=== PATIENT | female | born 1960 | race Caucasian/White ===

== ENCOUNTER 2017-08-24 22:39 | Inpatient (IN) | payer OTHER ==
[2017-08-24 22:41] VITALS: BMI 43.0
[2017-08-24] MEDS ORDERED: Sodium Chloride 0.9% 1,000 ML IV ONE (23:04)
[2017-08-24 23:17] LABS: EOS % 0.1 % (0.0-4.0); LYMPH # 0.3 K/uL (1.0-4.3); MEAN PLATELET VOLUME 8.5 fL (7.2-11.7); MONO # 0.1 K/uL (0.0-0.8)
[2017-08-24] MEDS ORDERED: Sodium Chloride 0.9% 1,000 ML ONE (23:17)
[2017-08-24 23:21] LABS: BASO % 0.4 % (0.0-2.0); HEMOGLOBIN 12.9 g/dL (11.0-16.0); LYMPH % 3.8 % (20.0-40.0); MEAN CELL VOLUME 84.6 fL (81.0-99.0); MEAN CORPUSCULAR HEMOGLOBIN 28.2 pg (27.0-31.0); MEAN CORPUSCULAR HGB CONC 33.3 g/dL (33.0-37.0); MONO % 1.7 % (0.0-10.0); NEUT # 8.1 K/uL (1.8-7.0); NRBC % 0.1 % (0.0-2.0); PLATELET COUNT 226 K/uL (130-400); RBC 4.59 Mil/uL (3.80-5.20); RED CELL DISTRIBUTION WIDTH 13.7 % (11.5-14.5); WHITE BLOOD COUNT 8.6 K/uL (4.8-10.8)
[2017-08-24 23:37] LABS: ALB/GLOB RATIO 1.2 (1.0-2.1); ALBUMIN 4.4 g/dL (3.5-5.0); ALT/SGPT 173 U/L (9-52); AST/SGOT 341 U/L (14-36); BLOOD UREA NITROGEN 15 mg/dL (7-17); CALCIUM 9.5 mg/dl (8.6-10.4); GFR AFRICAN-AMERICAN > 60; GFR NON-AFRICAN AMERICAN > 60
[2017-08-24 23:38] LABS: BANDS 6 % (0-2); LYMPHOCYTE 8 % (20-40); MONOCYTE 2 % (0-10); NEUTROPHIL 84 % (50-75); TOTAL CELLS COUNTED 100
[2017-08-24 23:39] LABS: PLATELET ESTIMATE NORMAL (NORMAL)
[2017-08-24 23:52] LABS: SQUAMOUS EPITHIAL 1 /hpf (0-5); URINE BACTERIA FEW (<OCC); URINE BILIRUBIN NEGATIVE (NEGATIVE); URINE BLOOD 1+ (NEGATIVE); URINE CLARITY Clear (Clear); URINE COLOR Yellow (YELLOW); URINE GLUCOSE (UA) NORMAL (Normal); URINE LEUKOCYTE ESTERASE NEG Leu/uL (Negative); URINE PROTEIN NEGATIVE (NEGATIVE)
[2017-08-25 00:08] LABS: BARBITURATES, UR NEGATIVE (NEGATIVE); BENZODIAZEPINES, UR NEGATIVE (NEGATIVE); OPIATES, UR NEGATIVE (NEGATIVE); PHENCYCLIDINE, UR NEGATIVE (NEGATIVE)
[2017-08-25 00:20] LABS: LIPASE 15964 U/L (23-300)
[2017-08-25] MEDS ORDERED: Iodixanol 320 MG/ML 100 ML BOTTLE IV ONE (00:35)
--- NOTE | 2017-08-25 01:08 | C.PDOC ---
History Of Present Illness 57 year old female presents to the ED for evaluation of sudden onset epigastric abdominal pain which around 1800 today. Patient also reports brief episode of nausea and vomiting. She states symptoms are not related to a meal and denies history of similar symptoms. Patient denies fever, chills. Time Seen by Provider: 08/24/17 23:01 Chief Complaint (Nursing): Abdominal Pain History Per: Patient History/Exam Limitations: no limitations Onset/Duration Of Symptoms: Hrs, Sudden Onset Current Symptoms Are (Timing): Still Present Location Of Pain/Discomfort: Epigastric Quality Of Discomfort: "Pain" Associated Symptoms: Nausea, Vomiting. denies: Fever, Chills Additional History Per: Patient Past Medical History Reviewed: Historical Data, Nursing Documentation, Vital Signs Vital Signs: Last Vital Signs Temp 98.9 F 08/24/17 23:21 Pulse 97 H 08/24/17 22:41 Resp 20 08/24/17 22:41 BP 145/68 08/24/17 22:41 Pulse Ox 98 08/25/17 01:57 - Medical History PMH: No Chronic Diseases Surgical History: No Surg Hx Family History: States: Unknown Family Hx - Social History Hx Alcohol Use: No Hx Substance Use: No - Immunization History Hx Tetanus Toxoid Vaccination: Yes Hx Influenza Vaccination: No Hx Pneumococcal Vaccination: No Review Of Systems Constitutional: Negative for: Fever, Chills Gastrointestinal: Positive for: Nausea, Vomiting, Abdominal Pain (epigastric ) Physical Exam - Physical Exam Appears: Non-toxic, No Acute Distress, Other (morbidly obese ) Skin: Normal Color, Warm, Dry Head: Atraumatic, Normacephalic Eye(s): bilateral: Normal Inspection Oral Mucosa: Moist Neck: Supple Chest: Symmetrical, No Deformity, No Tenderness Cardiovascular: Rhythm Regular, No Murmur Respiratory: Normal Breath Sounds, No Rales, No Rhonchi, No Wheezing Gastrointestinal/Abdominal: Soft, Tenderness (epigastric ), No Guarding, No Rebound, No Other (Marie's sign or McBurney's point tenderness ) Extremity: Normal ROM, Capillary Refill (less than 2 seconds ) Neurological/Psych: Oriented x3, Normal Speech, Normal Cognition ED Course And Treatment - Laboratory Results Result Diagrams: 08/24/17 23:14 08/24/17 23:14 Lab Interpretation: Abnormal (lipase 16,000 H, tox neg) ECG: Interpreted By Me ECG Rhythm: Sinus Rhythm ECG Interpretation: Normal Rate From EC O2 Sat by Pulse Oximetry: 98 (on RA) Pulse Ox Interpretation: Normal - Radiology CXR: Interpreted by Me CXR Interpretation: Yes: No Acute Disease - Other Rad abd x 2 X-Ray: Interpreted by Me (+FOS, + surg clips c/w gastric surgery) Progress Note: Bloodwork, urinalysis, CT A/P, Abdomen Flat plate, Obstructive Series Abdomen, EKG ordered and reviewed. Protonix IVP, Toradol IVP and IV Fluids administered. Reevaluation Time: 01:56 Reassessment Condition: Improved - Physician Consult Information Outcome Of Conversation: 0200; d/w Dr. Holloway- PMD- ok to admit. Medical Decision Making Medical Decision Making: constipation, acute pancreatitis Disposition Doctor Will See Patient In The: Hospital Counseled Patient/Family Regarding: Studies Performed, Diagnosis - Disposition Disposition: HOSPITALIZED Disposition Time: 01:57 Condition: GOOD Forms: [facility] ([place]) - Clinical Impression Clinical Impression: Acute pancreatitis - Scribe Statement The provider has reviewed the documentation as recorded by the Scribe (Grisel Nuno) Provider Attestation: All medical record entries made by the Scribe were at my direction and personally dictated by me. I have reviewed the chart and agree that the record accurately reflects my personal performance of the history, physical exam, medical decision making, and the department course for this patient. I have also personally directed, reviewed, and agree with the discharge instructions and disposition.
--- NOTE | 2017-08-25 01:47 | CT ---
EXAM: CT Abdomen and Pelvis With Intravenous Contrast CLINICAL HISTORY: 57 years old, female; Pain; Abdominal pain; Prior surgery; Surgery type: Epigastric TECHNIQUE: Axial computed tomography images of the abdomen and pelvis with intravenous contrast. All CT scans at this facility use one or more dose reduction techniques, viz.: automated exposure control; ma/kV adjustment per patient size (including targeted exams where dose is matched to indication; i.e. head); or iterative reconstruction technique. Coronal and sagittal reformatted images were created and reviewed. CONTRAST: 100 mL of [id number] administered intravenously. COMPARISON: No relevant prior studies available. FINDINGS: Lung bases: Unremarkable. No mass. No consolidation. ABDOMEN: Liver: There is a diffuse decrease in hepatic parenchymal density, consistent with fatty infiltration. Gallbladder and bile ducts: Mildly distended gallbladder. No calcified stones. No ductal dilation. Pancreas: Unremarkable. No mass. No ductal dilation. Spleen: Unremarkable. No splenomegaly. Adrenals: Unremarkable. No mass. Kidneys and ureters: Unremarkable. No solid mass. No hydronephrosis. Stomach and bowel: There has been a gastric stapling and bypass. No obstruction. The colon appears mildly thick walled from the distal transverse colon to the descending colon probably secondary to nondistention. Mild colitis is not excluded. PELVIS: Appendix: No findings to suggest acute appendicitis. Normal appendix. Bladder: Unremarkable. No mass. Reproductive: Unremarkable as visualized. ABDOMEN and PELVIS: Intraperitoneal space: Unremarkable. No free air. No significant fluid collection. Bones/joints: No acute fracture. No dislocation. Soft tissues: Unremarkable. Vasculature: There are numerous benign phleboliths in the pelvis. No abdominal aortic aneurysm. Lymph nodes: Unremarkable. No enlarged lymph nodes. IMPRESSION: Mildly distended gallbladder. If clinically warranted, right upper quadrant ultrasound could be obtained. Mildly thickwalled distal transverse and descending colon could be secondary to nondistention. Mild colitis not excluded. Clinical correlation recommended. Gastric bypass. Fatty liver. The
[2017-08-25] MEDS ORDERED: Sodium Chloride 0.9% 1,000 ML IV ONE (01:58)
[2017-08-25] MEDS ORDERED: Sodium Chloride 0.9% 1,000 ML ONE (02:55)
[2017-08-25] MEDS: Dextrose 5%/0.45% NS 1,000 ML IV SCH ×4 (07:50→20:05)
[2017-08-25] MEDS: Enoxaparin 40 mg Syringe SC SCH (09:01)
[2017-08-25 11:53] LABS: BASO % 0.3 % (0.0-2.0); EOS % 0.3 % (0.0-4.0); LYMPH # 0.6 K/uL (1.0-4.3); LYMPH % 4.6 % (20.0-40.0); MEAN CELL VOLUME 84.7 fL (81.0-99.0); MEAN CORPUSCULAR HEMOGLOBIN 28.3 pg (27.0-31.0); MEAN CORPUSCULAR HGB CONC 33.4 g/dL (33.0-37.0); MEAN PLATELET VOLUME 8.6 fL (7.2-11.7); MONO # 0.9 K/uL (0.0-0.8); MONO % 6.9 % (0.0-10.0); NEUT # 11.4 K/uL (1.8-7.0); NEUT % 87.9 % (50.0-75.0); PLATELET COUNT 178 K/uL (130-400); RBC 3.84 Mil/uL (3.80-5.20); RED CELL DISTRIBUTION WIDTH 13.4 % (11.5-14.5); WHITE BLOOD COUNT 12.9 K/uL (4.8-10.8)
[2017-08-25 12:05] LABS: HEMOGLOBIN 10.9 g/dL (11.0-16.0)
[2017-08-25 12:19] LABS: ALB/GLOB RATIO 1.1 (1.0-2.1); ALBUMIN 3.3 g/dL (3.5-5.0); ALT/SGPT 307 U/L (9-52); AMYLASE 282 U/L (30-110); AST/SGOT 345 U/L (14-36); BLOOD UREA NITROGEN 12 mg/dL (7-17); CALCIUM 8.1 mg/dl (8.6-10.4); GFR AFRICAN-AMERICAN > 60; GFR NON-AFRICAN AMERICAN > 60; HDL CHOLESTEROL 48 mg/dL (30-70); LIPASE 1637 U/L (23-300)
[2017-08-25 12:24] LABS: LDL CHOLESTEROL 67 mg/dL (0-129)
[2017-08-25 12:35] LABS: BANDS 6 % (0-2); EOSINOPHIL 1 % (0-4); LYMPHOCYTE 7 % (20-40); MONOCYTE 4 % (0-10); NEUTROPHIL 82 % (50-75); PLATELET ESTIMATE NORMAL (NORMAL); TOTAL CELLS COUNTED 100
[2017-08-25] MEDS ORDERED: Potassium Ch 20mEq in D5W 1,000 ML IV SCH (13:00)
--- NOTE | 2017-08-25 13:02 | PN ---
DATE: 08/25/2017 LOCATION: 650, bed A. SUBJECTIVE: This is a 57-year-old female seen initially on 08/24/2017 where she had consultation as requested by the admitting medical staff, re-examined again early today due to recurrent abdominal pain, generalized weakness and malaise, was found to have increased serum lipase and amylase level. The most recent lab results done yesterday showed lipase of 15,964 with elevated liver function tests. CAT scan of the abdomen and pelvis report is seen. The patient still has persistent abdominal pain with nausea but not reported vomiting this morning. No reported chest pain, palpitation, or evidence of active bleeding. The entire chart is reviewed including but not limited to the most recent lab and radiology study results, current and previous medication list, current and previous medical events. Case discussed with the staff at length. PHYSICAL EXAMINATION: GENERAL: A 57-year-old female complaining of severe midepigastric and midabdominal pain. VITAL SIGNS: Afebrile with pulse of 92, respiratory rate 20 to 22, blood pressure 130/76. HEENT: Showed pale, dry oral mucous membranes. Mildly icteric sclerae. LUNGS: A few scattered mild crepitation. Decreased air entry at bases. HEART: Positive S1 and S2 with increased rate. ABDOMEN: Mildly obese with diffuse tenderness, generalized mild distention. No mass or organomegaly. No rebound tenderness or guarding. IMPRESSION: 1. Acute pancreatitis, unclear etiology with limited but abnormal CAT scan of the abdomen and pelvis. 2. Rule out hyperlipidemia-induced pancreatitis, rule out possible periodic pancreatitis. SUGGESTIONS: 1. Continue current management. 2. MRCP. 3. Follow up lipase, amylase level and keep patient n.p.o. until lipase and amylase levels are normal or near normal. Further recommendation to follow. Jose Hoover MD
[2017-08-25] MEDS: POTASSIUM CHLORIDE IV SCH ×2 (14:45→18:02)
[2017-08-25] MEDS: DEXTROSE 5% IV SCH ×2 (14:45→18:02)
[2017-08-25] MEDS: WATER IV SCH ×2 (14:45→18:02)
--- NOTE | 2017-08-25 14:50 | RAD ---
HISTORY: abd pain COMPARISON: No prior. FINDINGS: BOWEL: Mild to moderate constipation. No evidence of small bowel obstruction. BONES: Degenerative changes noted in the spine. OTHER FINDINGS: Multiple surgical clips are seen. IMPRESSION: [id number] constipation.
[2017-08-26] MEDS: Dextrose 5%/0.45% NS 1,000 ML IV SCH ×5 (02:45→22:45)
[2017-08-26] MEDS: Enoxaparin 40 mg Syringe SC SCH (09:01)
[2017-08-26] MEDS ORDERED: Potassium Chloride 20 mEq/15 ml LIQ UD PO ONE (10:00)
--- NOTE | 2017-08-26 10:19 | US ---
HISTORY: ABNORMAL L.F.T. , R/O CBD STONE COMPARISON: None. TECHNIQUE: Sonographic evaluation of the abdomen. FINDINGS: LIVER: Measures 19.8 cm. Increased echogenicity of the liver parenchyma. No mass. No intrahepatic bile duct dilatation. GALLBLADDER: Cholelithiasis are noted. [id number] diffuse nonspecific gallbladder wall thickening. COMMON BILE DUCT: Measures 5 mm. No stones. No dilatation. PANCREAS: Unremarkable as visualized. No mass. No ductal dilatation. RIGHT KIDNEY: Measures 12 x 5.1 x 5.6cm. Normal echogenicity. No calculus, mass, or hydronephrosis. LEFT KIDNEY: Measures 11.5 x 6 x 5.3cm. Normal echogenicity. No calculus, mass, or hydronephrosis. SPLEEN: Normal in size and contour. No mass. AORTA: No aneurysmal dilatation. IVC: Unremarkable. OTHER FINDINGS: None. IMPRESSION: Echogenic heterogeneous liver likely due to hepatic steatosis. Gallstones and mild to moderate gallbladder wall thickening. Possible trace pericholecystic fluid. Correlate clinically for cholecystitis. Normal caliber common bile duct measures 5 millimeter.
[2017-08-26] MEDS: metroNIDAZOLE IV 500 mg/100 ml 500 MG/100 ML BAG IVPB SCH ×2 (10:30→16:17)
--- NOTE | 2017-08-26 12:14 | HP ---
HISTORY OF PRESENT ILLNESS: The patient is admitted to the hospital with a chief complaint of abdominal pain, nausea, and vomiting. PHYSICAL EXAMINATION: GENERAL: The patient is alert, awake, and oriented. VITAL SIGNS: Temperature 98, pulse 90. HEENT: Within normal limits. NECK: Supple. CHEST: Symmetrical. HEART: Regular. ABDOMEN: Soft. EXTREMITIES: No edema. ASSESSMENT AND PLAN: The patient suffers from pancreatitis. The patient to get bed rest, supportive care. Tina Fisher MD
--- NOTE | 2017-08-26 13:24 | PN ---
DATE: 08/26/2017 LOCATION: 650, bed A. SUBJECTIVE: This is a 57-year-old female seen and examined in rounds today. The entire chart is reviewed including but not limited to the most recent lab and radiology study results, current and the previous medication list, current and the previous medical events. Case discussed with the staff at length. The patient still has intermittent period of abdominal pain mainly in the midepigastric and the right upper quadrant area as well as the left lower quadrant area, and official report of the CAT scan of the abdomen and pelvis is seen. The patient still has intermittent period of abdominal pain with mild nausea and dyspepsia of unclear etiology so far. Today's lab results showed a lipase of 102 from original lipase level of 15,964 with increased liver enzymes as per yesterday with total bilirubin of 3.8. . PHYSICAL EXAMINATION: GENERAL: A 57-year-old female, awake, alert and oriented. VITAL SIGNS: Afebrile with jaundice with pulse of 70, respiratory rate 20-22, blood pressure of 156/82. HEENT: Showed dry oral mucoid exudate, pale, with bilateral icteric sclerae. LUNGS: Few scattered crepitation. Decreased air entry at bases. HEART: Positive S1 and S2. ABDOMEN: Soft with generalized tenderness, but mainly in the midepigastric and right upper quadrant area. No mass or organomegaly. No rebound tenderness or guarding. EXTREMITIES: Without significant clubbing, cyanosis or edema. IMPRESSION: 1. Jaundice, to rule out obstructive jaundice. 2. Abnormal liver function tests, most likely secondary to above. 3. Acute pancreatitis, subsiding gradually and biochemically, but not clearly , could be biliary pancreatitis. 4. Anemia, most likely secondary to above versus gastrointestinal blood loss. SUGGESTIONS: 1. Agree with your plan. 2. MRCP. 3. Due to the subsequent increase of liver function test and increased bilirubin level, an ERCP to be scheduled for a.m. if the patient is stable clinically. 4. Continue current management. Jose Hoover MD
[2017-08-27] MEDS: Dextrose 5%/0.45% NS 1,000 ML IV SCH ×5 (00:29→21:12)
[2017-08-27] MEDS: metroNIDAZOLE IV 500 mg/100 ml 500 MG/100 ML BAG IVPB SCH ×3 (00:29→16:16)
[2017-08-27 06:37] LABS: INR 1.2; PROTHROMBIN TIME 13.1 SECONDS (9.7-12.2)
--- NOTE | 2017-08-27 07:57 | PN ---
DATE: 08/26/2017 The patient has been complaining of abdominal pain, MRCP ordered. Tina Fisher MD
[2017-08-27] MEDS: Enoxaparin 40 mg Syringe SC SCH (09:40)
--- NOTE | 2017-08-27 09:56 | CP.PCM.PN ---
Subjective - Date & Time of Evaluation Date of Evaluation: 08/27/17 Time of Evaluation: 09:54 - Subjective Subjective: PGY2 Note for Dr. Fisher; all management as per Dr. Fisher This patient was seen and examined at bedside this AM; denies any abdominal pain or vomiting since being admitted to the hospital and states she feels much better; has not had food since sunday; denies fevers/chills, VANEGAS, CP, SOB, abdominal pain, N/V/D dysuria/freq/urg or lower extremity pain/swelling. Objective - Vital Signs/Intake and Output Vital Signs (last 24 hours): Temp Pulse Resp BP Pulse Ox 98.4 F 60 18 160/82 H 96 08/27/17 07:00 08/27/17 08:56 08/27/17 07:00 08/27/17 08:56 08/27/17 07:00 Intake and Output: 08/27/17 08/27/17 06:59 18:59 Intake Total 1200 Balance 1200 - Medications Medications: Current Medications Enoxaparin Sodium (Lovenox) 40 mg SC DAILY [facility] Last Admin: 08/27/17 09:40 Dose: Not Given Dextrose/Sodium Chloride (Dextrose 5%/0.45% Ns 1000 Ml) 1,000 mls @ 150 mls/hr IV .Q6H40M [facility] Last Admin: 08/27/17 09:03 Dose: 150 mls/hr Metronidazole (Flagyl) 500 mg in 100 mls @ 100 mls/hr IVPB Q8H [facility] PRN Reason: Protocol Last Admin: 08/27/17 09:03 Dose: 100 mls/hr Metoclopramide HCl (Reglan) 5 mg IVP Q8H [facility] Last Admin: 08/27/17 07:00 Dose: 5 mg Pantoprazole Sodium (Protonix Inj) 40 mg IVP DAILY [facility] Last Admin: 08/27/17 09:03 Dose: 40 mg - Labs Labs: 08/25/17 11:45 08/25/17 11:45 PT 13.1 SECONDS (9.7-12.2) H 08/27/17 06:18 INR 1.2 08/27/17 06:18 APTT 33 SECONDS (21-34) 08/27/17 06:18 - Constitutional Appears: Well - Head Exam Head Exam: ATRAUMATIC - Eye Exam Eye Exam: EOMI, PERRL, Scleral icterus Pupil Exam: PERRL - ENT Exam ENT Exam: Mucous Membranes Moist - Neck Exam Neck Exam: Full ROM - Respiratory Exam Respiratory Exam: Clear to Ausculation Bilateral, NORMAL BREATHING PATTERN. absent: Rales, Rhonchi, Wheezes - Cardiovascular Exam Cardiovascular Exam: REGULAR RHYTHM, +S1, +S2 - GI/Abdominal Exam GI & Abdominal Exam: Soft, Normal Bowel Sounds. absent: Tenderness, Organomegaly (morbidly obese abdomen with panus ) - Rectal Exam Rectal Exam: Deferred - Extremities Exam Extremities Exam: Full ROM. absent: Calf Tenderness, Pedal Edema - Back Exam Back Exam: NORMAL INSPECTION. absent: CVA tenderness (L), CVA tenderness (R) - Neurological Exam Neurological Exam: Alert, Awake, Oriented x3 - Psychiatric Exam Psychiatric exam: Normal Affect - Skin Skin Exam: Warm Assessment and Plan - Assessment and Plan (Free Text) Assessment: 57yo F admitted for gallstone pancreatitis Gallstone Pancreatitis; resolving -GI; Dr. Prado; thank you for your help -Surgery: Dr. Hassan; thank you for your help -planend for ERCP today 08/27; NPO past midnight; f/u results -AST/ALT elevated, Lipase elevated; pending hepatitis panel and TSH Hemoglobin A1c -Lipid Panel WNL -NPO, IVF, pain/emetic control -fatty liver on US; inflamed pancreas and thickened gallbadder wall; please refer to full report Hypocalemia -was low on 08/25; f/u 08/27 Ca -will replete as necessary Proph SCD Protonix 2/2 to NPO All management as per Dr. Phillip Buchanan PGY2
[2017-08-27 10:25] LABS: HEPATITIS B SURFACE AG Negative (NEGATIVE)
[2017-08-27 10:31] LABS: HEPATITIS A IGM NEGATIVE (NEGATIVE); HEPATITIS B CORE AB NEGATIVE (NEGATIVE)
[2017-08-27 10:42] LABS: HEPATITIS C ANTIBODY NEGATIVE (NEGATIVE)
[2017-08-27 10:43] LABS: ALB/GLOB RATIO 1.2 (1.0-2.1); ALBUMIN 3.6 g/dL (3.5-5.0); ALT/SGPT 182 U/L (9-52); AST/SGOT 116 U/L (14-36); BLOOD UREA NITROGEN 5 mg/dL (7-17); CALCIUM 8.8 mg/dl (8.6-10.4); GFR AFRICAN-AMERICAN > 60; GFR NON-AFRICAN AMERICAN > 60
[2017-08-27 12:20] LABS: BASO % 0.8 % (0.0-2.0); EOS # 0.2 K/uL (0.0-0.7); EOS % 4.1 % (0.0-4.0); HEMOGLOBIN 11.7 g/dL (11.0-16.0); LYMPH # 0.9 K/uL (1.0-4.3); LYMPH % 19.6 % (20.0-40.0); MEAN CELL VOLUME 85.7 fL (81.0-99.0); MEAN CORPUSCULAR HEMOGLOBIN 28.3 pg (27.0-31.0); MEAN CORPUSCULAR HGB CONC 33.1 g/dL (33.0-37.0); MONO # 0.6 K/uL (0.0-0.8); MONO % 12.7 % (0.0-10.0); NEUT % 62.8 % (50.0-75.0); RBC 4.12 Mil/uL (3.80-5.20); RED CELL DISTRIBUTION WIDTH 13.8 % (11.5-14.5)
[2017-08-27 12:21] LABS: WHITE BLOOD COUNT 4.7 K/uL (4.8-10.8)
[2017-08-27] MEDS ORDERED: Lactated Ringer's 1,000 ML IV ONE ×2 (12:29)
[2017-08-27] MEDS ORDERED: Propofol 10 mg/ml Inj (20 ML) ONE (12:37)
[2017-08-27] MEDS ORDERED: Midazolam 2 MG/2 ML VIAL ONE (12:38)
[2017-08-27] MEDS ORDERED: Potassium Chloride 20 mEq ER Tab PO ONE (14:45)
--- NOTE | 2017-08-27 20:20 | CP.PCM.CON ---
History of Present Illness - History of Present Illness History of Present Illness: Surgery 57 F w PSH of gastric byspass came with epigastric pain N/V. Pain started on Sunday. Pain is sudden and localized. Accompanied with N/V. Pt never had these sx before. Denies fever, diarrhea, CP , SOB, hematemesis, hematochezia, hematuria. PT had gastric bypass at [facility] with Dr. Palma years ago and lost 10 pounds. US showed gallstones, thicken GB wall and cholecystic fluids likely cholecystitis. LFT was elevated. Pt had ERCP today and was unable to visualize papilla. Surgery is consulted to evaluate for gallstone pancreatitis PMH obesity , HTN PSH gastric bypass SS: non smoker, non drinker Review of Systems - Review of Systems Review of Systems: See HPI Past Patient History - Past Social History Smoking Status: Never Smoked - CARDIAC Hx Cardiac Disorders: No - PULMONARY Hx Respiratory Disorders: No - NEUROLOGICAL Hx Neurological Disorder: No - HEENT Hx HEENT Problems: No - RENAL Hx Chronic Kidney Disease: No - ENDOCRINE/METABOLIC Hx Endocrine Disorders: No - HEMATOLOGICAL/ONCOLOGICAL Hx Blood Disorders: No - INTEGUMENTARY Hx Dermatological Problems: No - MUSCULOSKELETAL/RHEUMATOLOGICAL Hx Musculoskeletal Disorders: No Hx Falls: No - GASTROINTESTINAL Hx Gastrointestinal Disorders: No - GENITOURINARY/GYNECOLOGICAL Hx Genitourinary Disorders: No - PSYCHIATRIC Hx Psychophysiologic Disorder: No Hx Substance Use: No - SURGICAL HISTORY Hx Section: Yes (x3) - ANESTHESIA Hx Anesthesia: Yes Hx Anesthesia Reactions: No Meds Allergies/Adverse Reactions: Allergies Allergy/AdvReac Type Severity Reaction Status Date / Time No Known Allergies Allergy Unverified 08/24/17 22:40 - Medications Medications: Current Medications Enoxaparin Sodium (Lovenox) 40 mg SC DAILY [facility] Last Admin: 08/27/17 09:40 Dose: Not Given Dextrose/Sodium Chloride (Dextrose 5%/0.45% Ns 1000 Ml) 1,000 mls @ 150 mls/hr IV .Q6H40M [facility] Last Admin: 08/27/17 12:41 Dose: Not Given Metronidazole (Flagyl) 500 mg in 100 mls @ 100 mls/hr IVPB Q8H [facility] PRN Reason: Protocol Last Admin: 08/27/17 16:16 Dose: 100 mls/hr Metoclopramide HCl (Reglan) 5 mg IVP Q8H [facility] Last Admin: 08/27/17 14:45 Dose: 5 mg Pantoprazole Sodium (Protonix Inj) 40 mg IVP DAILY [facility] Last Admin: 08/27/17 09:03 Dose: 40 mg Sucralfate (Carafate Tab) 1 gm PO TID [facility] Last Admin: 08/27/17 17:46 Dose: 1 gm Physical Exam - Constitutional Appears: No Acute Distress - Head Exam Head Exam: ATRAUMATIC, NORMAL INSPECTION, NORMOCEPHALIC - Eye Exam Eye Exam: EOMI, Normal appearance, PERRL Pupil Exam: NORMAL ACCOMODATION, PERRL - ENT Exam ENT Exam: Mucous Membranes Moist, Normal Exam - Neck Exam Neck exam: Positive for: Normal Inspection - Respiratory Exam Respiratory Exam: Clear to Auscultation Bilateral, NORMAL BREATHING PATTERN - Cardiovascular Exam Cardiovascular Exam: REGULAR RHYTHM - GI/Abdominal Exam GI & Abdominal Exam: Normal Bowel Sounds, Soft, Tenderness. absent: Distended, Firm, Guarding, Hernia Additional comments: Obese, TTP epigastric - Extremities Exam Extremities exam: Positive for: normal inspection - Back Exam Back exam: NORMAL INSPECTION - Neurological Exam Neurological exam: Alert, CN II-XII Intact, Normal Gait, Oriented x3, Reflexes Normal - Psychiatric Exam Psychiatric exam: Normal Affect, Normal Mood - Skin Skin Exam: Dry, Intact, Normal Color, Warm Results - Vital Signs Recent Vital Signs: Last Vital Signs Temp 98.2 F 08/27/17 15:14 Pulse 73 08/27/17 15:14 Resp 20 08/27/17 15:14 BP 159/84 H 08/27/17 15:14 Pulse Ox 98 08/27/17 15:14 - Labs Result Diagrams: 08/27/17 12:00 08/27/17 10:04 Labs: Laboratory Results - last 24 hr 08/25/17 08/27/17 08/27/17 11:45 06:18 10:04 WBC RBC Hgb Hct MCV MCH MCHC RDW Plt Count MPV Neut % (Auto) Lymph % (Auto) [place] % (Auto) Eos % (Auto) Baso % (Auto) Neut # (Auto) Lymph # (Auto) [place] # (Auto) Eos # (Auto) Baso # (Auto) PT 13.1 H INR 1.2 APTT 33 Sodium 142 Potassium 3.4 L Chloride 107 Carbon Dioxide 25 Anion Gap 14 BUN 5 L Creatinine 0.6 L Est GFR ( Amer) > 60 Est GFR (Non-Af Amer) > 60 Random Glucose 86 Hemoglobin A1c Calcium 8.8 Total Bilirubin 3.0 H AST 116 H D ALT 182 H D Alkaline Phosphatase 116 Total Protein 6.7 Albumin 3.6 Globulin 3.0 Albumin/Globulin Ratio 1.2 TSH 3rd Generation 2.29 Hepatitis A IgM Ab Negative Hep Bs Antigen Negative Hep B Core IgM Ab Negative Hepatitis C Antibody Negative HIV 1&2 Antibody Screen 08/27/17 08/27/17 08/27/17 12:00 12:00 12:00 WBC 4.7 L D RBC 4.12 Hgb 11.7 Hct 35.3 MCV 85.7 MCH 28.3 MCHC 33.1 RDW 13.8 Plt Count 200 MPV 9.0 Neut % (Auto) 62.8 Lymph % (Auto) 19.6 L [place] % (Auto) 12.7 H Eos % (Auto) 4.1 H Baso % (Auto) 0.8 Neut # (Auto) 3.0 Lymph # (Auto) 0.9 L [place] # (Auto) 0.6 Eos # (Auto) 0.2 Baso # (Auto) 0.0 PT INR APTT Sodium Potassium Chloride Carbon Dioxide Anion Gap BUN Creatinine Est GFR ( Amer) Est GFR (Non-Af Amer) Random Glucose Hemoglobin A1c 5.8 Calcium Total Bilirubin AST ALT Alkaline Phosphatase Total Protein Albumin Globulin Albumin/Globulin Ratio TSH 3rd Generation Hepatitis A IgM Ab Hep Bs Antigen Hep B Core IgM Ab Hepatitis C Antibody HIV 1&2 Antibody Screen Negative Assessment & Plan - Assessment and Plan (Free Text) Assessment: gallstone pancreatitis LFT trending down ERCP: unable to visualize papilla -f/u MRCP -monitor LFT DW Dr. Hassan
[2017-08-28] MEDS: metroNIDAZOLE IV 500 mg/100 ml 500 MG/100 ML BAG IVPB SCH ×3 (00:24→17:10)
[2017-08-28] MEDS: Dextrose 5%/0.45% NS 1,000 ML IV SCH ×5 (01:30→23:13)
[2017-08-28 06:10] LABS: BASO % 0.8 % (0.0-2.0); EOS # 0.3 K/uL (0.0-0.7); EOS % 4.8 % (0.0-4.0); HEMOGLOBIN 11.3 g/dL (11.0-16.0); LYMPH # 1.4 K/uL (1.0-4.3); LYMPH % 24.4 % (20.0-40.0); MEAN CELL VOLUME 84.7 fL (81.0-99.0); MEAN CORPUSCULAR HEMOGLOBIN 28.4 pg (27.0-31.0); MEAN CORPUSCULAR HGB CONC 33.5 g/dL (33.0-37.0); MEAN PLATELET VOLUME 9.4 fL (7.2-11.7); MONO # 0.7 K/uL (0.0-0.8); MONO % 12.3 % (0.0-10.0); NEUT # 3.2 K/uL (1.8-7.0); NEUT % 57.7 % (50.0-75.0); NRBC % 0.2 % (0.0-2.0); RBC 3.96 Mil/uL (3.80-5.20); RED CELL DISTRIBUTION WIDTH 13.9 % (11.5-14.5); WHITE BLOOD COUNT 5.5 K/uL (4.8-10.8)
[2017-08-28 07:21] LABS: ALBUMIN 3.3 g/dL (3.5-5.0); ALT/SGPT 156 U/L (9-52); AST/SGOT 103 U/L (14-36); BLOOD UREA NITROGEN 6 mg/dL (7-17); GFR AFRICAN-AMERICAN > 60; GFR NON-AFRICAN AMERICAN > 60
--- NOTE | 2017-08-28 09:12 | PN ---
DATE: 08/28/2017 LOCATION: 650, bed A. SUBJECTIVE: This is a 57-year-old female, seen and examined in rounds, tolerating oral intake well without any reported nausea or vomiting. No reported active bleeding. The patient is scheduled for potential MRCP today. The entire chart is reviewed including but not limited to the most recent lab and radiology study results, current and the previous medication list, current and the previous medical events. Case discussed with the staff at length. Today's lab showed normal CBC, low BUN and creatinine with subsequent drop of total bilirubin to 2.1 with gradual improvement of AST 103, ALT 156, alkaline phosphatase 128. PHYSICAL EXAMINATION: GENERAL: A 57-year-old female. Denied any abdominal pain, chest pain, or significant shortness of breath. Denied any chills or fever with mild nausea but no vomiting. VITAL SIGNS: The patient is febrile with heart rate of 68, respiratory rate 20 to 22, blood pressure of 160/76. HEENT: Showed dry oral mucoid membrane with mild bilateral icteric sclerae. LUNGS: Clear breathing sounds are present bilaterally. HEART: Positive S1 and S2. ABDOMEN: Soft with slight tenderness. No mass or organomegaly. No rebound tenderness or guarding. EXTREMITIES: Without significant clubbing, cyanosis or edema. NEUROLOGIC: No reported new neurological deficits, sensory or motor. IMPRESSION: 1. Acute pancreatitis, most likely biliary pancreatitis. 2. Re-exacerbation of peptic ulcer disease. 3. Gallbladder stones. 4. Status post gastric bypass surgery. 5. Abnormal liver function tests, most likely secondary to above. 6. Past medical history, mainly of obesity. SUGGESTIONS: 1. Continue current management. 2. Follow MRCP. 3. Rehydration. 4. Peripheral hyperalimentation. 5. Further recommendations to follow. Jose Hoover MD
--- NOTE | 2017-08-28 09:55 | CP.PCM.PN ---
Subjective - Date & Time of Evaluation Date of Evaluation: 08/28/17 Time of Evaluation: 09:54 - Subjective Subjective: PGY2 Note for Dr. Fisher; all management as per Dr. Fisher Patient was seen and examined at bedside this AM; denies any pain and is desiring to eat; denies fevers/chills, VANEGAS, CP, SOB, abdominal pain, N/V/D, dysuria/freq/urg or lower extremity pain/swelling. Objective - Vital Signs/Intake and Output Vital Signs (last 24 hours): Temp Pulse Resp BP Pulse Ox 98.1 F 63 20 171/87 H 98 08/28/17 07:00 08/28/17 07:00 08/28/17 07:00 08/28/17 07:00 08/28/17 07:00 Intake and Output: 08/28/17 08/28/17 06:59 18:59 Intake Total 2640 Output Total 2 Balance 2638 - Medications Medications: Current Medications Enoxaparin Sodium (Lovenox) 40 mg SC DAILY [facility] Last Admin: 08/27/17 09:40 Dose: Not Given Dextrose/Sodium Chloride (Dextrose 5%/0.45% Ns 1000 Ml) 1,000 mls @ 150 mls/hr IV .Q6H40M [facility] Last Admin: 08/28/17 08:42 Dose: Not Given Metronidazole (Flagyl) 500 mg in 100 mls @ 100 mls/hr IVPB Q8H [facility] PRN Reason: Protocol Last Admin: 08/28/17 08:49 Dose: 100 mls/hr Metoclopramide HCl (Reglan) 5 mg IVP Q8H [facility] Last Admin: 08/28/17 06:55 Dose: 5 mg Pantoprazole Sodium (Protonix Inj) 40 mg IVP DAILY [facility] Last Admin: 08/27/17 09:03 Dose: 40 mg Sucralfate (Carafate Tab) 1 gm PO TID [facility] Last Admin: 08/27/17 17:46 Dose: 1 gm - Labs Labs: 08/28/17 06:03 08/28/17 06:03 PT 13.1 SECONDS (9.7-12.2) H 08/27/17 06:18 INR 1.2 08/27/17 06:18 APTT 33 SECONDS (21-34) 08/27/17 06:18 Assessment and Plan - Assessment and Plan (Free Text) Assessment: Appears: Well - Head Exam Head Exam: ATRAUMATIC - Eye Exam Eye Exam: EOMI, PERRL, Scleral icterus Pupil Exam: PERRL - ENT Exam ENT Exam: Mucous Membranes Moist - Neck Exam Neck Exam: Full ROM - Respiratory Exam Respiratory Exam: Clear to Ausculation Bilateral, NORMAL BREATHING PATTERN. absent: Rales, Rhonchi, Wheezes - Cardiovascular Exam Cardiovascular Exam: REGULAR RHYTHM, +S1, +S2 - GI/Abdominal Exam GI & Abdominal Exam: Soft, Normal Bowel Sounds. absent: Tenderness, Organomegaly (morbidly obese abdomen with panus ) - Rectal Exam Rectal Exam: Deferred - Extremities Exam Extremities Exam: Full ROM. absent: Calf Tenderness, Pedal Edema - Back Exam Back Exam: NORMAL INSPECTION. absent: CVA tenderness (L), CVA tenderness (R) - Neurological Exam Neurological Exam: Alert, Awake, Oriented x3 - Psychiatric Exam Psychiatric exam: Normal Affect - Skin Skin Exam: Warm Assessment and Plan - Assessment and Plan (Free Text) Assessment: 57yo F admitted for gallstone pancreatitis Gallstone Pancreatitis; resolving -GI; Dr. Prado; thank you for your help; recommended surgical consultation -Surgery: Dr. Hassan; thank you for your help -planend for ERCP on 08/27; was unable to complete 2/2 to past rue-en-y surgery -AST/ALT elevated, Lipase elevated; Hep panel neg, TSH WNL, HIV Neg -Lipid Panel WNL -NPO, IVF, pain/emetic control -fatty liver on US; inflamed pancreas and thickened gallbadder wall; please refer to full report -pending MRCP; if + patient will go for surgery inpatient, if - patient to set up outpatient choly Hypocalemia; resolved -was low on 08/25; f/u 08/27 Ca -will replete as necessary Proph SCD Protonix 2/2 to NPO All management as per Dr. Phillip Buchanan PGY2
[2017-08-28] MEDS ORDERED: Gadodiamide 287 mg/ml 20 ml IV ONE (10:55)
[2017-08-28] MEDS: Enoxaparin 40 mg Syringe SC SCH (11:25)
--- NOTE | 2017-08-28 11:53 | RAD ---
PROCEDURE: Intraoperative Fluoroscopy. HISTORY: JAUNDICE FINDINGS: Fluoroscopic assistance was provided. Fluoroscopy time = 1.4 seconds. Radiation dose 0.1126 mGy-cm. Please refer to the operative report for additional details.
[2017-08-28] MEDS ORDERED: Midazolam 2 MG/2 ML VIAL ONE (13:50)
[2017-08-28] MEDS ORDERED: Propofol 10 mg/ml Inj (20 ML) ONE (13:51)
[2017-08-28] MEDS ORDERED: Rocuronium 10 mg/ml (5 ml) ONE (13:54)
--- NOTE | 2017-08-28 14:20 | MRI ---
PROCEDURE: Magnetic Resonance Cholangiopancreatography and MRI abdomen with/without contrast. HISTORY: COMPARISON: None available. TECHNIQUE: Multiplanar, multisequence MR images of the abdomen were obtained, including heavily T2 weighted MRCP images of the biliary system. Rotating maximum intensity projection images of the biliary system were generated. Examination of the abdomen was performed with and without intravenous gadolinium administration utilizing multiplanar, multi sequence imaging. FINDINGS: MRCP: The common bile duct is of a normal caliber. No evidence of choledocholithiasis. No intrahepatic biliary ductal dilatation. LIVER: Normal size, contour and signal intensity. No mass. No biliary ductal dilatation. No abnormal enhancement following gadolinium administration. GALLBLADDER: Several dependent calculi. No mural thickening. No pericholecystic fluid or edema. SPLEEN: Unremarkable. PANCREAS: No mass. No ductal dilatation. No peripancreatic fluid/edema ADRENALS: Unremarkable. KIDNEYS: Unremarkable. AORTA: No aneurysm. ASCITES: None. OTHER FINDINGS: None. IMPRESSION: Cholelithiasis without evidence of cholecystitis. No evidence of pancreatitis. No evidence of biliary obstruction.
[2017-08-28] MEDS ORDERED: Neostigmine Methylsulfate 3mg/3ml Syringe IV ONE (15:31)
[2017-08-28] MEDS ORDERED: Labetalol 25mg/5ml Syringe ONE (15:35)
--- NOTE | 2017-08-28 16:09 | PCM.SURG1 ---
Surgeon's Initial Post Op Note - Surgeon's Notes Surgeon: MD Mo Curb Setter Helper: ARLETH BaeY2 Pre-Operative Diagnosis: Acute cholecystitis Operative Findings: inflammed gallbladder Post-Operative Diagnosis: same Operation Performed: Laparoscopic cholecystectomy, lysis of adhesison Specimen/Specimens Removed: gallbladder Estimated Blood Loss: EBL {In ML}: 10 Date of Surgery/Procedure: 08/28/17 Time of Surgery/Procedure: 16:08
[2017-08-28] MEDS ORDERED: Labetalol 25mg/5ml Syringe IVP PRN (16:16)
[2017-08-28] MEDS ORDERED: HYDROmorphone 0.5 mg/0.5 ml ISec ONE (16:17)
[2017-08-28] MEDS: HYDROmorphone 0.5 mg/0.5 ml ISec IVP PRN ×2 (16:30→16:53)
--- NOTE | 2017-08-28 17:01 | RAD ---
HISTORY: postop lap fan, chest pain COMPARISON: No prior. FINDINGS: LUNGS: Trace discoid atelectasis and/or scarring left lateral lung base. There are left air bronchograms project in the left heart peribronchial thickening/, segment atelectasis and/or infiltrate here is compatible with this. PLEURA: No significant pleural effusion identified, no pneumothorax apparent. CARDIOVASCULAR: Normal. OSSEOUS STRUCTURES: No significant abnormalities. VISUALIZED UPPER ABDOMEN: Normal. OTHER FINDINGS: None. IMPRESSION: Air bronchograms are suggested on the current study without significant dense consolidation. Nevertheless subsegmental atelectatic changes here are believe most likely given the postop history provided. Rule to this there is left lateral discoid atelectasis. Recommend PA and lateral view with greater inspiration when patient can tolerate Bone island versus calcific bursitis center calcific rotator cuff tendinopathy projecting of the left acromion.
[2017-08-28] MEDS: HYDROmorphone 1 mg/ml ISec IVP PRN (21:59)
[2017-08-29] MEDS: metroNIDAZOLE IV 500 mg/100 ml 500 MG/100 ML BAG IVPB SCH ×3 (00:06→17:01)
--- NOTE | 2017-08-29 01:57 | OP ---
PROCEDURE DATE: 08/28/2017 PREOPERATIVE DIAGNOSIS: Cholelithiasis, status post biliary pancreatitis. POSTOPERATIVE DIAGNOSIS: Cholelithiasis, status post biliary pancreatitis. PROCEDURE: Laparoscopic cholecystectomy. DESCRIPTION OF OPERATION: With the patient in the supine position under adequate general anesthesia, the abdomen was prepped and draped in usual sterile manner. Veress needle puncture was performed at the umbilicus with insufflation to 15 cm water pressure of CO2 and a 10-mm laparoscopic trocar was inserted via an infraumbilical incision. Under direct vision, additional trocars were inserted in the epigastrium and right costal margin. The gallbladder was visualized. It does not appear acutely inflamed, however, it was softly distended, and 20 mL of dark green bile were aspirated allowing the gallbladder fundus to be grasped and elevated. The infundibulum was grasped and retracted laterally and dissection of fatty areolar tissue around the cystic duct was begun to identify the cystic duct. The cystic duct was identified and cleared down towards the junction with the common bile duct. Additional, dissection was continued upward to identify the cystic artery and the cystic duct was then triply clipped and divided. Anterior and posterior branches of the cystic artery were similarly identified and each was triply clipped and divided and the gallbladder was dissected free of the liver bed using electrocautery. The liver bed was inspected for hemostasis and the dissection was completed. The gallbladder was placed in a specimen retrieval bag and removed via the umbilical port site. It was noted to contain multiple moderately sized stones. The right upper quadrant was irrigated and suctioned. The umbilical port site was closed under direct vision with a fascial closure device. The pneumoperitoneum was released and the trocars were removed. All incisions were closed with 4-0 Monocryl subcuticular sutures and Steri-Strips. Dry sterile dressings were applied. The patient tolerated the procedure well and transferred for recovery room in stable condition. Estimated blood loss for the procedure was 10 mL. Hermes Hassan MD
[2017-08-29] MEDS: HYDROmorphone 1 mg/ml ISec IVP PRN ×4 (03:40→21:21)
[2017-08-29] MEDS: Sodium Chloride 0.9% 1,000 ML IV SCH ×3 (06:56→17:31)
--- NOTE | 2017-08-29 07:24 | CP.PCM.PN ---
Subjective - Date & Time of Evaluation Date of Evaluation: 08/29/17 Time of Evaluation: 07:23 - Subjective Subjective: Progress Note for Dr. Fisher's Service Pt seen and examined at bedside. POD 1 s/p lap fan. She appear uncomfortable and states that she is having abdominal pain. She has not been able to eat, only drinking small amounts of juice/water. No fevers or chills. Objective - Vital Signs/Intake and Output Vital Signs (last 24 hours): Temp Pulse Resp BP Pulse Ox 98.7 F 74 20 145/89 97 08/29/17 04:00 08/29/17 04:00 08/29/17 04:00 08/29/17 04:00 08/29/17 04:00 Intake and Output: 08/29/17 08/29/17 06:59 18:59 Intake Total 300 Balance 300 - Medications Medications: Current Medications Enoxaparin Sodium (Lovenox) 40 mg SC DAILY [facility] Last Admin: 08/28/17 11:25 Dose: Not Given Hydromorphone HCl (Dilaudid) 1 mg IVP Q4H PRN PRN Reason: Pain, severe (8-10) Last Admin: 08/29/17 03:40 Dose: 1 mg Metronidazole (Flagyl) 500 mg in 100 mls @ 100 mls/hr IVPB Q8H [facility] PRN Reason: Protocol Last Admin: 08/29/17 00:06 Dose: 100 mls/hr Sodium Chloride (Sodium Chloride 0.9%) 1,000 mls @ 150 mls/hr IV .Q6H40M [facility] Last Admin: 08/29/17 06:56 Dose: 150 mls/hr Metoclopramide HCl (Reglan) 5 mg IVP Q8H [facility] Last Admin: 08/29/17 06:50 Dose: 5 mg Pantoprazole Sodium (Protonix Inj) 40 mg IVP DAILY [facility] Last Admin: 08/28/17 11:00 Dose: Not Given Sucralfate (Carafate Tab) 1 gm PO TID [facility] Last Admin: 08/28/17 18:38 Dose: Not Given - Labs Labs: 08/28/17 06:03 08/28/17 06:03 PT 13.1 SECONDS (9.7-12.2) H 08/27/17 06:18 INR 1.2 08/27/17 06:18 APTT 33 SECONDS (21-34) 08/27/17 06:18 - Constitutional Appears: Non-toxic - Head Exam Head Exam: ATRAUMATIC, NORMOCEPHALIC - Eye Exam Eye Exam: EOMI - ENT Exam ENT Exam: Mucous Membranes Moist - Respiratory Exam Respiratory Exam: Clear to Ausculation Bilateral, NORMAL BREATHING PATTERN - Cardiovascular Exam Cardiovascular Exam: REGULAR RHYTHM, +S1, +S2 - GI/Abdominal Exam GI & Abdominal Exam: Soft Additional comments: appropriately tender dressing c/d/i - Extremities Exam Extremities Exam: absent: Calf Tenderness, Pedal Edema - Neurological Exam Neurological Exam: Alert, Awake, Oriented x3 - Psychiatric Exam Psychiatric exam: Normal Affect, Normal Mood - Skin Skin Exam: Dry, Warm Assessment and Plan - Assessment and Plan (Free Text) Plan: Gallstone Pancreatitis s/p lap cholecystectomy -GI; Dr. Prado; thank you for your help; recommended surgical consultation -Surgery: Dr. Hassan; thank you for your help s/p lap fan 08/28/17 -planned for ERCP on 08/27; was unable to complete 2/2 to past rue-en-y surgery -MRCP 08/28 cholelithiasis w/o cholecystitis- no evidence of pancreatitis -AST/ALT elevated, Lipase elevated; Hep panel neg, TSH WNL, HIV Neg -Lipid Panel WNL -Restart diet as per surgery- currently not tolerating PO intake well -Dilaudid 1mg q4hrs prn -reglan 5mg iv q8hrs prn -fatty liver on US; inflamed pancreas and thickened gallbadder wall; please refer to full report -flagyl 500mg q8hrs Hypocalemia; resolved -was low on 08/25; f/u 08/27 Ca -will replete as necessary Proph SCD Protonix 40 iv daily reglan 5mg ivp q8hrs prn Case discussed with Dr. Fisher All management as per Dr. Fisher
[2017-08-29 07:27] LABS: BASO % 0.2 % (0.0-2.0); EOS % 0.1 % (0.0-4.0); HEMOGLOBIN 11.3 g/dL (11.0-16.0); LYMPH % 8.4 % (20.0-40.0); MEAN CELL VOLUME 85.3 fL (81.0-99.0); MEAN CORPUSCULAR HEMOGLOBIN 28.7 pg (27.0-31.0); MEAN CORPUSCULAR HGB CONC 33.6 g/dL (33.0-37.0); MEAN PLATELET VOLUME 8.5 fL (7.2-11.7); MONO # 1.3 K/uL (0.0-0.8); MONO % 10.6 % (0.0-10.0); NEUT # 9.7 K/uL (1.8-7.0); NEUT % 80.7 % (50.0-75.0); PLATELET COUNT 220 K/uL (130-400); RBC 3.93 Mil/uL (3.80-5.20); RED CELL DISTRIBUTION WIDTH 13.6 % (11.5-14.5)
[2017-08-29 07:45] LABS: ALB/GLOB RATIO 1.3 (1.0-2.1); ALBUMIN 3.8 g/dL (3.5-5.0); ALT/SGPT 159 U/L (9-52); AST/SGOT 110 U/L (14-36); BLOOD UREA NITROGEN 11 mg/dL (7-17); GFR AFRICAN-AMERICAN > 60; GFR NON-AFRICAN AMERICAN > 60
[2017-08-29 09:30] LABS: HYPOCHROMIC SLIGHT; LYMPHOCYTE 6 % (20-40); MONOCYTE 10 % (0-10); NEUTROPHIL 84 % (50-75); PLATELET ESTIMATE NORMAL (NORMAL); TOTAL CELLS COUNTED 100
[2017-08-29] MEDS: Enoxaparin 40 mg Syringe SC SCH (11:07)
--- NOTE | 2017-08-29 15:13 | PN ---
DATE: 08/29/2017 LOCATION: 650, bed A. SUBJECTIVE: This is a 57-year-old female seen and examined in rounds post-cholecystectomy, still complaining of abdominal pain post-surgically without any reported active bleeding, but mild shortness of breath. The entire chart is reviewed including but not limited to most recent lab and radiology study results, current and the previous medication list, current and the previous medical events. Case discussed with the staff at length. Case discussed also with Dr. Fisher this morning. Today's lab showed leukocytosis of 12, hematocrit 33.5 with normal platelet count. Total bilirubin 2.1, AST 110, ALT 159. PHYSICAL EXAMINATION: GENERAL: A 57-year-old female, awake, alert, oriented, complaining of abdominal pain. VITAL SIGNS: Afebrile with pulse of 70, respiratory rate 20-22, blood pressure 140/76. HEENT: Showed pale, dry oral mucous membrane. Nonicteric sclerae. LUNGS: Few scattered crepitation. Decreased air entry at bases. HEART: Positive S1 and S2. ABDOMEN: Soft with mild generalized tenderness with mild distention, covered with clean dressing. Bowel sounds are hypoactive. No mass or organomegaly. No rebound tenderness or guarding. EXTREMITIES: Without significant clubbing, cyanosis or edema. No reported new neurological deficits, sensory or motor. No reported new focal deficits. IMPRESSION: 1. Cholelithiasis status post cholecystectomy. 2. Status post gastric bypass surgery with gastritis. 3. Acute pancreatitis, most likely secondary to biliary pancreatitis. 4. Abnormal liver function tests secondary to above. SUGGESTIONS: 1. Continue current management. 2. Flagyl IV. 3. Peripheral hyperalimentation. 4. Further recommendation to follow. Jose Hoover MD
--- NOTE | 2017-08-29 15:36 | CP.PCM.PN ---
Subjective - Date & Time of Evaluation Date of Evaluation: 08/29/17 Time of Evaluation: 15:33 - Subjective Subjective: General Surgery Progress note for Dr. Hassan This 57F was seen and evaluated this Am at bedside no acute events overnight. Patient complains of RUQ and shoulder pain. She is tolerating liquids as well as fruit that she requested. She denies any BM. She reports flatus and ambulation. She reports she is using the incentive spirometer once an hour. Objective - Vital Signs/Intake and Output Vital Signs (last 24 hours): Temp Pulse Resp BP Pulse Ox 98.8 F 74 18 144/74 98 08/29/17 07:30 08/29/17 07:30 08/29/17 07:30 08/29/17 07:30 08/29/17 07:30 Intake and Output: 08/29/17 08/29/17 06:59 18:59 Intake Total 300 Balance 300 - Medications Medications: Current Medications Enoxaparin Sodium (Lovenox) 40 mg SC DAILY [facility] Last Admin: 08/29/17 11:07 Dose: 40 mg Hydromorphone HCl (Dilaudid) 1 mg IVP Q4H PRN PRN Reason: Pain, severe (8-10) Last Admin: 08/29/17 11:09 Dose: 1 mg Metronidazole (Flagyl) 500 mg in 100 mls @ 100 mls/hr IVPB Q8H [facility] PRN Reason: Protocol Last Admin: 08/29/17 10:00 Dose: 100 mls/hr Sodium Chloride (Sodium Chloride 0.9%) 1,000 mls @ 150 mls/hr IV .Q6H40M [facility] Last Admin: 08/29/17 11:07 Dose: 150 mls/hr Metoclopramide HCl (Reglan) 5 mg IVP Q8H [facility] Last Admin: 08/29/17 06:50 Dose: 5 mg Pantoprazole Sodium (Protonix Inj) 40 mg IVP DAILY [facility] Last Admin: 08/29/17 11:06 Dose: 40 mg Sucralfate (Carafate Tab) 1 gm PO TID [facility] Last Admin: 08/29/17 14:59 Dose: Not Given - Labs Labs: 08/29/17 07:14 08/29/17 07:14 PT 13.1 SECONDS (9.7-12.2) H 08/27/17 06:18 INR 1.2 08/27/17 06:18 APTT 33 SECONDS (21-34) 08/27/17 06:18 - Constitutional Appears: Non-toxic, No Acute Distress - Head Exam Head Exam: ATRAUMATIC, NORMOCEPHALIC - Eye Exam Eye Exam: EOMI, Normal appearance - ENT Exam ENT Exam: Mucous Membranes Moist - Respiratory Exam Respiratory Exam: NORMAL BREATHING PATTERN - Cardiovascular Exam Cardiovascular Exam: +S1, +S2 - GI/Abdominal Exam GI & Abdominal Exam: Soft. absent: Distended, Firm, Guarding, Rigid, Tenderness - Neurological Exam Neurological Exam: Alert, Awake - Psychiatric Exam Psychiatric exam: Normal Affect, Normal Mood - Skin Skin Exam: Dry, Normal Color Assessment and Plan - Assessment and Plan (Free Text) Assessment: 57F POD#1 s/p lap fan and doing well regular diet clear for discharge at the discretion of primary care physician with followup in 7-10 days D/W Dr. Mo Duke PGY2
[2017-08-30] MEDS: metroNIDAZOLE IV 500 mg/100 ml 500 MG/100 ML BAG IVPB SCH ×3 (00:59→16:59)
[2017-08-30] MEDS: HYDROmorphone 1 mg/ml ISec IVP PRN ×4 (01:40→22:03)
[2017-08-30 02:42] LABS: CK-MB 0.35 ng/mL (0.0-3.38)
--- NOTE | 2017-08-30 07:29 | CP.PCM.PN ---
Subjective - Date & Time of Evaluation Date of Evaluation: 08/30/17 Time of Evaluation: 07:29 - Subjective Subjective: Progress Note for Dr. Fisher's Service Pt seen and examined at bedside. Had abdominal/chest discomfort overnight- EKG was done; determined to be non-cardiac. Trops negative. Sx's have resolved and patient is no longer having this pain. She does has discomfort around the surgical ports. She is not tolerating her diet, is only able to hold down small amounts of liquids. Is not able to eat any solid foods or tolerate dense/ unclear liquids. Has not had any bowel movements nor has she passed any gas since her surgery. No fevers. Objective - Vital Signs/Intake and Output Vital Signs (last 24 hours): Temp Pulse Resp BP Pulse Ox 98.3 F 81 20 181/84 H 95 08/30/17 04:20 08/30/17 04:20 08/30/17 04:20 08/30/17 04:20 08/29/17 23:00 Intake and Output: 08/30/17 08/30/17 06:59 18:59 Intake Total 1150 Balance 1150 - Medications Medications: Current Medications Enoxaparin Sodium (Lovenox) 40 mg SC DAILY [facility] Last Admin: 08/29/17 11:07 Dose: 40 mg Hydromorphone HCl (Dilaudid) 1 mg IVP Q4H PRN PRN Reason: Pain, severe (8-10) Last Admin: 08/30/17 01:40 Dose: 1 mg Metronidazole (Flagyl) 500 mg in 100 mls @ 100 mls/hr IVPB Q8H [facility] PRN Reason: Protocol Last Admin: 08/30/17 00:59 Dose: 100 mls/hr Sodium Chloride (Sodium Chloride 0.9%) 1,000 mls @ 150 mls/hr IV .Q6H40M [facility] Last Admin: 08/29/17 17:31 Dose: Not Given Metoclopramide HCl (Reglan) 5 mg IVP Q8H [facility] Last Admin: 08/30/17 06:56 Dose: 5 mg Pantoprazole Sodium (Protonix Inj) 40 mg IVP DAILY [facility] Last Admin: 08/29/17 11:06 Dose: 40 mg Sucralfate (Carafate Tab) 1 gm PO TID [facility] Last Admin: 08/29/17 17:28 Dose: 1 gm - Labs Labs: 08/29/17 07:14 08/29/17 07:14 PT 13.1 SECONDS (9.7-12.2) H 08/27/17 06:18 INR 1.2 08/27/17 06:18 APTT 33 SECONDS (21-34) 08/27/17 06:18 - Constitutional Appears: No Acute Distress - Head Exam Head Exam: ATRAUMATIC, NORMOCEPHALIC - Eye Exam Eye Exam: EOMI - ENT Exam ENT Exam: Mucous Membranes Moist - Respiratory Exam Respiratory Exam: Clear to Ausculation Bilateral - Cardiovascular Exam Cardiovascular Exam: REGULAR RHYTHM, +S1, +S2 - GI/Abdominal Exam GI & Abdominal Exam: Soft Additional comments: appropriately tender wounds c/d/i - Neurological Exam Neurological Exam: Alert, Awake, Oriented x3 - Psychiatric Exam Psychiatric exam: Normal Affect, Normal Mood - Skin Skin Exam: Dry, Warm Assessment and Plan - Assessment and Plan (Free Text) Plan: Gallstone Pancreatitis s/p lap cholecystectomy -GI; Dr. Prado; thank you for your help; recommended surgical consultation -Surgery: Dr. Hassan; thank you for your help s/p lap fan 08/28/17 -planned for ERCP on 08/27; was unable to complete 2/2 to past rue-en-y surgery -MRCP 08/28 cholelithiasis w/o cholecystitis- no evidence of pancreatitis -AST/ALT elevated but lower than previously, Lipase elevated; Hep panel neg, TSH WNL, HIV Neg -Lipid Panel WNL -fatty liver on US; inflamed pancreas and thickened gallbadder wall; please refer to full report -Restart diet as per surgery- currently not tolerating PO intake well; only tolerating clear liquids in small amounts -Dilaudid 1mg q4hrs prn -reglan 5mg iv q8hrs prn -carafate 1 g po tid -flagyl 500mg q8hrs Hypocalemia; resolved -was low on 08/25; f/u 08/27 Ca -will replete as necessary Proph SCD Protonix 40 iv daily reglan 5mg ivp q8hrs prn Colace Will continue to monitor patient until she is able to tolerate PO intake. She is currently only able to tolerate small amounts of clear liquids. Additionally , she has not had a bowel movement since her fan, nor has she passed gas. Case discussed with Dr. Fisher All management as per Dr. Fisher
[2017-08-30 07:35] LABS: BASO # 0.1 K/uL (0.0-0.2); BASO % 0.4 % (0.0-2.0); EOS # 0.2 K/uL (0.0-0.7); EOS % 1.2 % (0.0-4.0); LYMPH % 7.6 % (20.0-40.0); MEAN CELL VOLUME 85.6 fL (81.0-99.0); MEAN CORPUSCULAR HEMOGLOBIN 27.6 pg (27.0-31.0); MEAN CORPUSCULAR HGB CONC 32.3 g/dL (33.0-37.0); MONO # 1.5 K/uL (0.0-0.8); MONO % 11.1 % (0.0-10.0); NEUT # 10.5 K/uL (1.8-7.0); NEUT % 79.7 % (50.0-75.0); PLATELET COUNT 215 K/uL (130-400); RED CELL DISTRIBUTION WIDTH 13.5 % (11.5-14.5); WHITE BLOOD COUNT 13.2 K/uL (4.8-10.8)
[2017-08-30 07:55] LABS: ALB/GLOB RATIO 1.2 (1.0-2.1); ALBUMIN 3.7 g/dL (3.5-5.0); ALT/SGPT 151 U/L (9-52); AST/SGOT 107 U/L (14-36); BLOOD UREA NITROGEN 8 mg/dL (7-17); CALCIUM 8.9 mg/dl (8.6-10.4); GFR AFRICAN-AMERICAN > 60; GFR NON-AFRICAN AMERICAN > 60
[2017-08-30 08:05] LABS: CK-MB 0.45 ng/mL (0.0-3.38)
--- NOTE | 2017-08-30 08:36 | CP.PCM.PN ---
Subjective - Date & Time of Evaluation Date of Evaluation: 08/30/17 Time of Evaluation: 08:33 - Subjective Subjective: SURGERY PROGRESS NOTE FOR DR. MADISON 57F seen and examined at bedside. Patients complained of pain at site of operation and right shoulder pain, pain is controlled, denies nausea, vomiting, She is toleration liquid diet. Right sided chest pain overnight was worked up with EKG non- concerning for acute event. Objective - Vital Signs/Intake and Output Vital Signs (last 24 hours): Temp Pulse Resp BP Pulse Ox 98.3 F 81 20 181/84 H 95 08/30/17 04:20 08/30/17 04:20 08/30/17 04:20 08/30/17 04:20 08/29/17 23:00 Intake and Output: 08/30/17 08/30/17 06:59 18:59 Intake Total 1150 Balance 1150 - Medications Medications: Current Medications Docusate Sodium (Colace) 100 mg PO DAILY [facility] Enoxaparin Sodium (Lovenox) 40 mg SC DAILY [facility] Last Admin: 08/29/17 11:07 Dose: 40 mg Hydromorphone HCl (Dilaudid) 1 mg IVP Q4H PRN PRN Reason: Pain, severe (8-10) Last Admin: 08/30/17 01:40 Dose: 1 mg Metronidazole (Flagyl) 500 mg in 100 mls @ 100 mls/hr IVPB Q8H [facility] PRN Reason: Protocol Last Admin: 08/30/17 00:59 Dose: 100 mls/hr Sodium Chloride (Sodium Chloride 0.9%) 1,000 mls @ 150 mls/hr IV .Q6H40M [facility] Last Admin: 08/29/17 17:31 Dose: Not Given Metoclopramide HCl (Reglan) 5 mg IVP Q8H [facility] Last Admin: 08/30/17 06:56 Dose: 5 mg Ondansetron HCl (Zofran Inj) 4 mg IVP Q4 PRN PRN Reason: Nausea/Vomiting Pantoprazole Sodium (Protonix Inj) 40 mg IVP DAILY [facility] Last Admin: 08/29/17 11:06 Dose: 40 mg Sucralfate (Carafate Tab) 1 gm PO TID [facility] Last Admin: 08/29/17 17:28 Dose: 1 gm - Labs Labs: 08/30/17 07:29 08/30/17 07:31 PT 13.1 SECONDS (9.7-12.2) H 08/27/17 06:18 INR 1.2 08/27/17 06:18 APTT 33 SECONDS (21-34) 08/27/17 06:18 - Constitutional Appears: Non-toxic, No Acute Distress - Respiratory Exam Respiratory Exam: Clear to Ausculation Bilateral, NORMAL BREATHING PATTERN - Cardiovascular Exam Cardiovascular Exam: REGULAR RHYTHM, +S1, +S2 - GI/Abdominal Exam GI & Abdominal Exam: Soft, Tenderness (mild tenderness, incisions CDI). absent : Distended, Firm, Guarding, Rigid, Rebound - Neurological Exam Neurological Exam: Alert, Awake Assessment and Plan - Assessment and Plan (Free Text) Assessment: 57F s/p lap cholecystectomy POD#2 Plan: - advanced diet - patient cleared from surgical standpoint - Further recs discuss with Dr. Mo Bae, PGY2
[2017-08-30 09:27] LABS: ANISOCYTOSIS SLIGHT; EOSINOPHIL 1 % (0-4); LYMPHOCYTE 9 % (20-40); MONOCYTE 10 % (0-10); NEUTROPHIL 80 % (50-75); PLATELET ESTIMATE NORMAL (NORMAL); TOTAL CELLS COUNTED 100
[2017-08-30 09:28] LABS: HYPOCHROMIC SLIGHT; POIKILOCYTOSIS SLIGHT
[2017-08-30] MEDS: Enoxaparin 40 mg Syringe SC SCH (09:51)
--- NOTE | 2017-08-30 12:03 | PN ---
DATE: 08/30/2017 LOCATION: 650, bed A. SUBJECTIVE: This is a 57 years old female seen and examined at rounds with reported complaint of right-sided chest pain and right-sided shoulder pain early for which an EKG was done with mild shortness of breath associated with right upper quadrant tenderness. The initial EKG reading reported to be normal. The patient tolerated somewhat oral intake well, passing gas associated with less appetite. Most recent lab results today showed normal troponin level with normal CK and normal total creatinine kinase with today's lab is still pending. PHYSICAL EXAMINATION: GENERAL: A 57 years old female awake, alert and oriented. VITAL SIGNS: Afebrile with pulse of 84, respiratory rate 20 to 22, blood pressure 174/82. HEENT: Showed pale, dry and oral mucous membrane mildly with slight icteric sclerae bilaterally. LUNGS: Scattered crepitation with decreased air entry at bases. HEART: Positive S1 and S2. ABDOMEN: With mild distinction. Bowel sounds are hypoactive with generalized tenderness with clean dressing. No mass or organomegaly. EXTREMITIES: Without significant clubbing, cyanosis or edema. NEUROLOGIC: No reported new neurological deficits, sensory or motor. IMPRESSION: 1. Cholelithiasis with status post laparoscopic cholecystectomy. 2. Right sided pain that could be secondary to the surgery itself; however, the possibility of pulmonary embolism should be ruled in or out, less likely in the face of normal EKG. The patient may need lung scan after chest x-ray to be repeated. 3. Status post gastric sleeve by history. 4. Abnormal liver function test with jaundice secondary to above. 5. Recent history of acute pancreatitis most likely secondary to biliary pancreatitis. 6. Poorly-controlled hypertension. SUGGESTIONS: 1. Agree with your plan. 2. Lung scan. 3. Repeat EKG with chest x-ray. 4. Proper hyperalimentation. 5. Further recommendation to follow. Jose Hoover MD
--- NOTE | 2017-08-30 12:29 | CARD ---
APPROVED REPORT EKG Measurement Heart [id number] CO 166P45 [id number] <Conclusion> Normal sinus rhythm Nonspecific ST abnormality Abnormal ECG
[2017-08-30] MEDS: Sodium Chloride 0.9% 1,000 ML IV SCH (13:17)
[2017-08-31] MEDS: metroNIDAZOLE IV 500 mg/100 ml 500 MG/100 ML BAG IVPB SCH ×2 (00:49→08:17)
[2017-08-31] MEDS: HYDROmorphone 1 mg/ml ISec IVP PRN ×2 (04:57→11:31)
[2017-08-31 05:01] VITALS: O2SAT 94
[2017-08-31 06:14] LABS: BASO # 0.1 K/uL (0.0-0.2); BASO % 0.7 % (0.0-2.0); EOS # 0.3 K/uL (0.0-0.7); HEMOGLOBIN 11.2 g/dL (11.0-16.0); LYMPH # 1.4 K/uL (1.0-4.3); LYMPH % 13.2 % (20.0-40.0); MEAN CELL VOLUME 85.8 fL (81.0-99.0); MEAN CORPUSCULAR HEMOGLOBIN 28.9 pg (27.0-31.0); MEAN CORPUSCULAR HGB CONC 33.7 g/dL (33.0-37.0); MEAN PLATELET VOLUME 8.4 fL (7.2-11.7); MONO # 1.2 K/uL (0.0-0.8); MONO % 11.9 % (0.0-10.0); NEUT # 7.3 K/uL (1.8-7.0); NEUT % 71.2 % (50.0-75.0); RBC 3.87 Mil/uL (3.80-5.20); RED CELL DISTRIBUTION WIDTH 13.8 % (11.5-14.5); WHITE BLOOD COUNT 10.3 K/uL (4.8-10.8)
[2017-08-31 06:26] LABS: ALB/GLOB RATIO 1.1 (1.0-2.1); ALBUMIN 3.5 g/dL (3.5-5.0); ALT/SGPT 116 U/L (9-52); AST/SGOT 64 U/L (14-36); BLOOD UREA NITROGEN 5 mg/dL (7-17); CALCIUM 8.8 mg/dl (8.6-10.4); GFR AFRICAN-AMERICAN > 60; GFR NON-AFRICAN AMERICAN > 60
[2017-08-31] MEDS ORDERED: POLYETHYLENE GLYCOL 3350 17 GM/Dose PACKET PO ONE (07:30)
--- NOTE | 2017-08-31 07:41 | CP.PCM.PN ---
Subjective - Date & Time of Evaluation Date of Evaluation: 08/31/17 Time of Evaluation: 09:41 - Subjective Subjective: PGY2 Note for Dr. Fisher's service; all management as per Dr. Fisher This patient was seen and examined at bedside this AM; denies any acute complaints or overnight events; patient is tolerating full diet. Objective - Vital Signs/Intake and Output Vital Signs (last 24 hours): Temp Pulse Resp BP Pulse Ox 98.8 F 82 20 175/85 H 94 L 08/31/17 04:55 08/31/17 04:55 08/31/17 04:55 08/31/17 04:55 08/31/17 04:55 Intake and Output: 08/31/17 08/31/17 06:59 18:59 Intake Total 750 Balance 750 - Medications Medications: Current Medications Docusate Sodium (Colace) 100 mg PO DAILY [facility] Last Admin: 08/30/17 09:51 Dose: 100 mg Enoxaparin Sodium (Lovenox) 40 mg SC DAILY [facility] Last Admin: 08/30/17 09:51 Dose: 40 mg Hydromorphone HCl (Dilaudid) 1 mg IVP Q4H PRN PRN Reason: Pain, severe (8-10) Last Admin: 08/31/17 04:57 Dose: 1 mg Metronidazole (Flagyl) 500 mg in 100 mls @ 100 mls/hr IVPB Q8H [facility] PRN Reason: Protocol Last Admin: 08/31/17 00:49 Dose: 100 mls/hr Metoclopramide HCl (Reglan) 5 mg IVP Q8H [facility] Last Admin: 08/31/17 07:01 Dose: 5 mg Ondansetron HCl (Zofran Inj) 4 mg IVP Q4 PRN PRN Reason: Nausea/Vomiting Pantoprazole Sodium (Protonix Inj) 40 mg IVP DAILY [facility] Last Admin: 08/30/17 09:51 Dose: 40 mg Sucralfate (Carafate Tab) 1 gm PO TID [facility] Last Admin: 08/30/17 18:34 Dose: 1 gm - Labs Labs: 08/31/17 06:08 08/31/17 06:08 PT 13.1 SECONDS (9.7-12.2) H 08/27/17 06:18 INR 1.2 08/27/17 06:18 APTT 33 SECONDS (21-34) 08/27/17 06:18 Assessment and Plan - Assessment and Plan (Free Text) Assessment: - Constitutional Appears: No Acute Distress - Head Exam Head Exam: ATRAUMATIC, NORMOCEPHALIC - Eye Exam Eye Exam: EOMI - ENT Exam ENT Exam: Mucous Membranes Moist - Respiratory Exam Respiratory Exam: Clear to Ausculation Bilateral - Cardiovascular Exam Cardiovascular Exam: REGULAR RHYTHM, +S1, +S2 - GI/Abdominal Exam GI & Abdominal Exam: Soft Additional comments: appropriately tender wounds c/d/i - Neurological Exam Neurological Exam: Alert, Awake, Oriented x3 - Psychiatric Exam Psychiatric exam: Normal Affect, Normal Mood - Skin Skin Exam: Dry, Warm Assessment and Plan - Assessment and Plan (Free Text) Plan: Gallstone Pancreatitis s/p lap cholecystectomy -GI; Dr. Prado; thank you for your help; recommended surgical consultation -Surgery: Dr. Hassan; thank you for your help s/p lap fan 08/28/17 -planned for ERCP on 08/27; was unable to complete 2/2 to past rue-en-y surgery -MRCP 08/28 cholelithiasis w/o cholecystitis- no evidence of pancreatitis -AST/ALT elevated but lower than previously, Lipase elevated; Hep panel neg, TSH WNL, HIV Neg -Lipid Panel WNL -fatty liver on US; inflamed pancreas and thickened gallbadder wall; please refer to full report -Restart diet as per surgery- currently not tolerating PO intake well; only tolerating clear liquids in small amounts -Dilaudid 1mg q4hrs prn -reglan 5mg iv q8hrs prn -carafate 1 g po tid -flagyl 500mg q8hrs The patient; if tolerating diet better and having BM; f/u with Dr. Hassan in 1 week; c/w ciprofloxacin and metronidazole for 7d as well; 500mg TID metronidazole and 200mg PO BID for 7 days; please also take florastor 250mg BID for 1 month to prevent C. Diff associated diarrhea with antibiotic use Hypocalemia; resolved -was low on 08/25; f/u 08/27 Ca -will replete as necessary Proph SCD Protonix 40 iv daily reglan 5mg ivp q8hrs prn Colace Will continue to monitor patient until she is able to tolerate PO intake. She is currently only able to tolerate small amounts of clear liquids. Additionally , she has not had a bowel movement since her fan, nor has she passed gas. The patient; if tolerating diet better and having BM; f/u with Dr. Hassan in 1 week; c/w ciprofloxacin and metronidazole for 7d as well; 500mg TID metronidazole and 200mg PO BID for 7 days; please also take florastor 250mg BID for 1 month to prevent C. Diff associated diarrhea with antibiotic use -pt is ok to shower; if wounds become red, inflamed, painful, with purulent drainage please come back to the nearest ED for prompt treatment. Case discussed with Dr. Fisher All management as per Dr. Fisher
[2017-08-31 08:04] VITALS: RESP 18; TEMP 98.1
[2017-08-31] MEDS ORDERED: Potassium Chloride 20 mEq ER Tab PO STA (08:52)
[2017-08-31] MEDS: Enoxaparin 40 mg Syringe SC SCH (09:28)
[2017-08-31 11:54] VITALS: BP 158/79; PULSE 75
--- NOTE | 2017-08-31 21:51 | PN ---
DATE: 08/31/2017 LOCATION: 650, bed A. SUBJECTIVE: This is a 57 years old female seen early in rounds, somewhat tolerating oral intake well, reported having bowel movement and passing gas, but still with intermittent periods of mild abdominal pain. The entire chart is reviewed including but not limited to the most recent lab and radiology study results, current and previous medication list, current and previous medical events. The patient denied any actual chest pain, palpitations or significant shortness of breath. Tolerating oral intake well so far. Today's lab showed normal CBC with hematocrit of 33.2, potassium 3.4 with total bilirubin 1.5, AST 64 and ALT 116 with normal alkaline phosphatase. PHYSICAL EXAMINATION: GENERAL: A 57 years old female, awake, alert, oriented. VITAL SIGNS: Afebrile with pulse of 72, respiratory rate 20 to 22 with blood pressure of 150/72. HEENT: Showed pale, dry oral mucous membrane. Nonicteric sclerae. LUNGS: Few scattered crepitation. Decreased air entry at bases. HEART: Positive S1 and S2. ABDOMEN: Soft with generalized tenderness covered with some clean dressing. Bowel sounds are present. No mass or organomegaly. No rebound tenderness or guarding. EXTREMITIES: Without significant clubbing, cyanosis or edema. NEUROLOGIC: No reported new neurological deficits, sensory or motor. IMPRESSION: 1. Cholelithiasis status post laparoscopic cholecystectomy, status post gastric sleeve by history. 2. Jaundice with abnormal liver function test secondary to above. 3. Acute pancreatitis, resolved. 4. Poorly controlled hypertension. SUGGESTIONS: 1. Continue current management. 2. Advance diet. 3. The patient to be followed up as outpatient when she is more stable clinically. 4. Further recommendation to follow. Jose Hoover MD
--- NOTE | 2017-09-02 15:41 | CARD ---
APPROVED REPORT EKG Measurement Heart [id number] 170P26 [id number] <Conclusion> Normal sinus rhythm Normal ECG
== END 2017-08-31 14:46 | disposition home or self-care (01) | DRG 417 ==
LOC: C.ER 22:39 → C.9E 08-25 01:57 → C.6T 08-25 03:31
PROVIDERS: ADMIT Internal Medicine Pulmonary Disease; ATTEND Internal Medicine Pulmonary Disease
PROC: 0FJB8ZZ Inspection of Hepatobiliary Duct, Via Natural or Artificial Opening Endoscopic (ICD-10-PCS; 2017-08-27)
PROC: 0FJD8ZZ Inspection of Pancreatic Duct, Via Natural or Artificial Opening Endoscopic (ICD-10-PCS; 2017-08-27 12:55)
PROC: 0FT44ZZ Resection of Gallbladder, Percutaneous Endoscopic Approach (ICD-10-PCS; principal; 2017-08-28 12:15)
DX: K80.10 Calculus of gallbladder with chronic cholecystitis without obstruction (principal); K85.10 Biliary acute pancreatitis without necrosis or infection; K27.3 Acute peptic ulcer, site unspecified, without hemorrhage or perforation; I10 Essential (primary) hypertension; Z98.84 Bariatric surgery status; K59.00 Constipation, unspecified; E83.51 Hypocalcemia